=== PATIENT | female | born 1965 | race Caucasian/White ===

== ENCOUNTER 2018-06-29 09:39 | Day surgery (SDC) | payer OTHER ==
[~2018-06-29] VITALS: Ht 162.6 cm; Wt 67.3 kg
[2018-06-29 10:27] VITALS: Ht 162.6 cm; Wt 67.3 kg
[2018-06-29] MEDS ORDERED: LEVO50TA7 PO (10:39)
[2018-06-29 10:52] VITALS: BP 112/64; PULSE 73; RESP 30
[2018-06-29] MEDS ORDERED: MIDAZOLAM 1 MG/ML 2 ML INJ ONE (11:30)
[2018-06-29] MEDS ORDERED: FENTAnyl 50 MCG/ML VIAL ONE (11:30)
[2018-06-29 12:02] VITALS: BP 114/62; PULSE 68; RESP 13
== END 2018-06-29 16:44 | disposition home or self-care (01) ==
LOC: GIL 09:39
PROVIDERS: ATTEND Internal Medicine Gastroenterology
DX: Z12.11 Encounter for screening for malignant neoplasm of colon (principal); K64.8 Other hemorrhoids
CPT/HCPCS: 45378; J2250; J3010